=== PATIENT | female | born 1985 | race Caucasian/White ===

== ENCOUNTER 2016-12-20 20:42 | Emergency (ER) | payer OTHER ==
[2016-12-20 20:48] VITALS: BP 125/85; TEMP 100.3; BMI 23.3
--- NOTE | 2016-12-20 21:09 | ED.PDOC ---
General ED Provider: Dr. JOB MENA Chief Complaint: Fever Stated Complaint: Patient compalints of fever with headache for the past few days. Son has been sick and is on antibiotics. Time Seen by Physician: 21:08 Mode of Arrival: Walk-In Information Source: Patient Exam Limitations: No limitations Nursing and Triage Documentation Reviewed and Agree: Yes Miscellaneous Complaint Exam - Febrile Illness/Adult Complaint/Exam Onset/Duration: 3 days Symptoms Are: Still present Timing: Constant Highest Temperature Recorded: unknown Initial Severity: Mild Current Severity: Mild Aggravating: Reports: None Alleviating: Reports: OTC Meds Associated Signs and Symptoms: Reports: Headache, Sore throat Pseudomonas Risk Factors: Reports: None Serious Bacterial Infection Risk Factors: Reports: Ill contact Current Antibiotic Use: No Related Surgical History: None Specific Findings: Absent: Meningeal signs, Diaphoresis, Joint swelling, Erythema, Cellulitis, Lymphadenopathy, Petechiae, CVA tenderness Differential Diagnoses: Viremia Patient Advised to Stop Smoking: No Review of Systems - Review Of Systems Constitutional: Reports: No symptoms Eyes: Reports: No symptoms Ears, Nose, Mouth, Throat: Reports: No symptoms Respiratory: Reports: No symptoms Cardiac: Reports: No symptoms GI: Reports: No symptoms : Reports: No symptoms Musculoskeletal: Reports: No symptoms Skin: Reports: No symptoms Neurological: Reports: No symptoms Endocrine: Reports: No symptoms Hematologic/Lymphatic: Reports: No symptoms All Other Systems: Reviewed and Negative Past Medical History - Past Medical History Previously Healthy: Yes Endocrine: Reports: None Cardiovascular: Reports: None Respiratory: Reports: None Hematological: Reports: None Gastrointestinal: Reports: None Genitourinary: Reports: None Neuro/Psych: Reports: None Musculoskeletal: Reports: None Cancer: Reports: None Last Menstrual Period: 12/16/16 - Surgical History General Surgical History: Reports: None - Family History Family History: Reports: None - Social History Smoking Status: Former smoker Hx Substance Use: No Alcohol Screening: Occasionally - Immunizations Tetanus Shot up to Date: Yes Physical Exam - Physical Exam Appearance: Ill-appearing Ill-appearing: Moderate Pain Distress: Moderate Eyes: RISSA, EOMI, Conjunctiva clear ENT: Ears normal, Nose normal, Oropharynx normal Neck: Supple Respiratory: Airway patent, Breath sounds clear, Breath sounds equal, Respirations nonlabored Cardiovascular: RRR, Pulses normal, No rub, No murmur GI/: Soft, Nontender, No masses, Bowel sounds normal, No Organomegaly Musculoskeletal: Normal strength, ROM intact, No edema, No calf tenderness Skin: Warm, Dry, Normal color Neurological: Sensation intact, Motor intact, Reflexes intact, Cranial nerves intact, Alert, Oriented Psychiatric: Anxious Critical Care Note - Critical Care Note Total Time (mins): 0 Course - Course Orders, Labs, Meds: Lab Review 12/20/16 20:57 Influenza A (Rapid) Negative Influenza B (Rapid) Negative Orders Category Date Time Status FLU A & B RAPID TEST [RAPID FLU A/B] Stat LAB 12/20/16 20:57 Completed MOLECULAR GROUP A STREP Stat LAB 12/20/16 20:57 Completed STREP SCREEN Stat LAB 12/20/16 20:57 Completed Vital Signs: Temp Pulse Resp BP Pulse Ox 12/20/16 20:42 100.3 F H 96 H 20 125/85 95 Departure - Departure Time of Disposition: 21:25 Disposition: HOME SELF-CARE Discharge Problem: Viral illness Instructions: Viral Syndrome (ED) Condition: Fair Pt referred to PMD for follow-up: Yes Additional Instructions: Alternates Tylenol with Motrin as needed for fever Push fluids Follow up with PCP in 3 days Allergies/Adverse Reactions: Allergies No Known Allergies Allergy (Verified 12/20/16 20:50) Home Medications: Ambulatory Orders 1 [No Reported Medications] 01/28/16 Disposition Discussed With: Patient, Family
[2016-12-20 21:19] LABS: FLU INTERNAL QC INTERNAL QC VALID; RAPID FLU A NEGATIVE (NEGATIVE); RAPID FLU B NEGATIVE (NEGATIVE)
== END 2016-12-20 21:31 | disposition home or self-care (01) ==
LOC: ED 20:42
DX: B34.9 Viral infection, unspecified (principal)
CPT/HCPCS: 87651; 87804; 87880; 99282